=== PATIENT | male | born 1940 | race Caucasian/White ===

== ENCOUNTER 2023-10-07 15:32 | Emergency (ER) | payer MEDICARE ==
[~2023-10-07 15:32] MED LIST: Iopamidol 370 76% 100 ML VIAL ONE
[2023-10-07 16:48] LABS: Troponin I Less than 0.010 ng/mL (< 0.028)
[2023-10-07 16:52] LABS: ALT (SGPT) 41 U/L (8-55); AST (SGOT) 38 U/L (5-34); Albumin 4.2 g/dL (3.4-4.8); Alkaline Phosphatase 46 U/L (40-110); Anion Gap 13 mmol/L (10-20); BUN (Urea Nitrogen) 12 mg/dL (8.4-25.7); Bilirubin, Total 0.6 mg/dL (0.2-1.2); Calc. Creatinine Clearance 0 mL/min (70-130); Calcium 8.7 mg/dL (7.8-10.44); Carbon Dioxide 22 mmol/L (23-31); Chloride 106 mmol/L (98-107); Estimated GFR 80; Globulin 3.1 g/dL (2.4-3.5); Glucose 94 mg/dL (83-110); Potassium 4.4 mmol/L (3.5-5.1); Protein, Total 7.3 g/dL (5.8-8.1); Sodium 137 mmol/L (136-145)
[2023-10-07 16:58] LABS: #Eosinphils 0.1 10x3/uL (0.0-0.5); #Monocytes 0.8 10x3/uL (0.0-1.1); #Neutrophils 3.9 10x3/uL (1.5-8.4); %Basophils 0.3 % (0.0-2.0); %Eosinophils 0.9 % (0.0-6.0); %Monocytes 11.4 % (0.0-10.0); %Neutrophils 59.1 % (40.0-75.0); Hematocrit 43.1 % (38.8-50.0); Hemoglobin 14.5 g/dL (13.5-17.5); Mean Corpuscular HGB CONC 33.6 g/dL (32.0-36.0); Mean Corpuscular Hemoglobin 30.2 pg (27.0-33.0); Mean Corpuscular Volume 89.8 fl (81.2-95.1); Mean Platelet Volume 10.6 fl (7.4-10.4); Platelet Count 210 10x3/uL (150-450); RBC Distribution Width 13.1 % (11.5-14.5); White Blood Cell (WBC) Count 6.7 10x3/uL (3.5-10.5)
[2023-10-07 17:00] LABS: INR-International Normal Ratio 1.1; Prothrombin Time 11.4 sec (9.5-12.1)
== END 2023-10-07 17:53 | disposition home or self-care (01) ==
LOC: CSHERS 15:32
DX: I65.23 Occlusion and stenosis of bilateral carotid arteries (principal); I67.1 Cerebral aneurysm, nonruptured; I10 Essential (primary) hypertension; E78.5 Hyperlipidemia, unspecified; Z79.82 Long term (current) use of aspirin; Z79.899 Other long term (current) drug therapy
CPT/HCPCS: 0042T; 70450; 71045; 80053; 82962; 84484; 85025; 85610; 85730; 93005; 94760; 99285; 36416; Q9967

== ENCOUNTER 2023-11-07 07:57 | Outpatient (CLI) | payer MEDICARE ==
[2023-11-07] MEDS ORDERED: Magnevist 469MG/ML 20 ML VIAL ONE (10:27)
== END 2023-11-07 07:58 | disposition home or self-care (01) ==
LOC: CSHMRI 07:57
PROVIDERS: ATTEND Family Medicine
DX: G45.9 Transient cerebral ischemic attack, unspecified (principal); I67.9 Cerebrovascular disease, unspecified
CPT/HCPCS: 70553; A9579

== ENCOUNTER 2024-08-19 08:00 | Outpatient (CLI) | payer MEDICARE ==
[2024-08-19] MEDS ORDERED: Iopamidol 370 76% 100 ML VIAL ONE (10:11)
== END 2024-08-19 08:01 | disposition home or self-care (01) ==
LOC: CSHCT 08:00
PROVIDERS: ATTEND Neurological Surgery
DX: I67.1 Cerebral aneurysm, nonruptured (principal)
CPT/HCPCS: 36415; 70496; 82565